=== PATIENT | female | born 1955 | race Caucasian/White ===

== ENCOUNTER → 2018-10-04 | Emergency (ER) | payer OTHER ==
[~2018-10-04] VITALS: Ht 157.5 cm; Wt 59.0 kg
[~2018-10-04] MED LIST: CLONAZEPAM2 MG; KEFLEX500 MG PO; KETO10TA2 PO; ZOLOFT25 MG
== END | disposition home or self-care (01) ==
LOC: ER 11:54
DX: N39.0 Urinary tract infection, site not specified (principal); R10.2 Pelvic and perineal pain